=== PATIENT | male | born 1955 | race Two or more races ===

== ENCOUNTER 2018-11-18 13:57 | Emergency (ER) | payer MEDICAID ==
[~2018-11-18] VITALS: Ht 180.3 cm; Wt 73.0 kg
[2018-11-18 14:49] LABS: CLARITY URINE CLEAR (CLEAR); COLOR URINE YELLOW (YELLOW); KETONES URINE NEGATIVE (NEGATIVE); LEUKOCYTE ESTERASE URINE 2+ (NEGATIVE); NITRITE URINE NEGATIVE (NEGATIVE); OCCULT BLOOD URINE NEGATIVE (NEGATIVE); PROTEIN URINE NEGATIVE (NEGATIVE); SPECIFIC GRAVITY URINE 1.019 (1.005-1.030); UROBILINOGEN URINE 0.2 E.U./dL (0.2-1.0)
[2018-11-18 14:59] LABS: BASOPHILS % 0.5 % (0.0-2.0); EOSINOPHILS % 2.3 % (0.0-5.0); HEMATOCRIT. 37.7 % (42.0-52.0); HEMOGLOBIN. 13.6 g/dL (14.0-18.0); LYMPHOCYTES % 28.3 % (20.0-50.0); MEAN CORPUSCULAR HEMOGLOBIN 30.1 pg (28.0-32.0); MEAN CORPUSCULAR VOLUME 83.7 fL (80.0-94.0); MEAN PLATELET VOLUME 8.4 fl (7.4-10.4); MONOCYTES % 8.4 % (2.0-8.0); NEUTROPHILS % 60.5 % (40.0-76.0); PLATELET 185 x1000/uL (130-400); RED CELL DISTRIBUTION WIDTH 12.9 % (11.6-14.6)
[2018-11-18 15:04] LABS: CHLORIDE 106 mEq/L (98-107)
[2018-11-18] MEDS ORDERED: IOHEXOL-350 100 ML BOTTLE ONE (16:18)
[2018-11-18] MEDS ORDERED: LEVOFLOXACIN 750MG PREMIX 150 ML IV ONE (17:00)
[2018-11-18] MEDS ORDERED: METRONIDAZOLE 50MG/ML 1ML ORAL SYR(NEO) PO ONE (17:00)
[2018-11-18] MEDS ORDERED: METRONIDAZOLE 500MG TABLET PO NR (17:30)
[2018-11-18] MEDS ORDERED: ONDANSETRON HCL 4MG/2ML INJ IV ONE (19:00)
[2018-11-18 19:57] VITALS: BP 113/77
== END 2018-11-18 21:27 | disposition home or self-care (01) ==
LOC: ER 13:57
DX: K57.32 Diverticulitis of large intestine without perforation or abscess without bleeding (principal); E03.9 Hypothyroidism, unspecified; M19.90 Unspecified osteoarthritis, unspecified site
CPT/HCPCS: 36415; 74174; 80053; 81003; 85025; 96365; 99284; J1956; J2405; Q9967; Z7610

== ENCOUNTER 2018-11-22 19:49 | Inpatient (IN) | payer MEDICAID ==
[~2018-11-22] VITALS: Ht 177.8 cm; Wt 72.6 kg
[2018-11-22] MEDS ORDERED: ONDANSETRON HCL 4MG/2ML INJ IV STA (20:42)
[2018-11-22] MEDS ORDERED: SODIUM CHLORIDE 0.9% 1,000 ML IV ONE (20:42)
[2018-11-22] MEDS ORDERED: MORPHINE SULFATE 4 MG/ML CPJ (NOT FOR IM USE) IV STA (20:42)
[2018-11-22] MEDS ORDERED: LEVOFLOXACIN 750MG PREMIX 150 ML IV ONE (20:45)
[2018-11-22] MEDS ORDERED: METRONIDAZOLE 500 MG PREMIX 100 ML IV ONE (20:45)
[2018-11-22 21:16] LABS: CLARITY URINE CLEAR (CLEAR); COLOR URINE DARK YELLOW (YELLOW); KETONES URINE NEGATIVE (NEGATIVE); LEUKOCYTE ESTERASE URINE 1+ (NEGATIVE); NITRITE URINE NEGATIVE (NEGATIVE); OCCULT BLOOD URINE NEGATIVE (NEGATIVE); PROTEIN URINE TRACE (NEGATIVE); SPECIFIC GRAVITY URINE 1.035 (1.005-1.030); UROBILINOGEN URINE 0.2 E.U./dL (0.2-1.0)
[2018-11-22 21:17] LABS: BASOPHILS % 1.3 % (0.0-2.0); EOSINOPHILS % 5.7 % (0.0-5.0); HEMOGLOBIN. 14.7 g/dL (14.0-18.0); LYMPHOCYTES % 44.6 % (20.0-50.0); MEAN CORPUSCULAR HEMOGLOBIN 30.2 pg (28.0-32.0); MEAN CORPUSCULAR VOLUME 82.2 fL (80.0-94.0); MEAN PLATELET VOLUME 8.2 fl (7.4-10.4); MONOCYTES % 10.9 % (2.0-8.0); NEUTROPHILS % 37.5 % (40.0-76.0); PLATELET 208 x1000/uL (130-400); RED BLOOD CELL COUNT 4.87 mill/uL (4.7-6.1); RED CELL DISTRIBUTION WIDTH 12.8 % (11.6-14.6)
[2018-11-22 21:28] LABS: INR 1.1; PARTIAL THROMBOPLASTIN TIME 34.1 sec (23.4-31.0); PROTHROMBIN TIME 11.1 sec (9.6-11.0)
[2018-11-22 21:29] LABS: CHLORIDE 91 mEq/L (98-107)
[2018-11-23 03:00] VITALS: BP 115/75
[2018-11-23] MEDS ORDERED: HYDROMORPHONE HCL/PF 2MG/ML CPJ IV PRN (06:30)
[2018-11-23] MEDS ORDERED: LEVOFLOXACIN 500MG PREMIX 100 ML IV SCH ×2 (06:30→21:00)
[2018-11-23] MEDS ORDERED: ACETAMINOPHEN 325MG TABLET PO PRN (06:30)
[2018-11-23] MEDS ORDERED: ONDANSETRON HCL 4MG/2ML INJ IV PRN (06:30)
[2018-11-23] MEDS ORDERED: DOCUSATE SODIUM 100MG CAPSULE PO PRN (06:30)
[2018-11-23] MEDS ORDERED: HYDROCODONE/ACETAMINOPHEN 10/325MG TABLET PO PRN (06:30)
[2018-11-23] MEDS ORDERED: IPRATROPIUM/ALBUTEROL 0.5-3(2.5)MG/3ML NEB INH PRN (06:30)
[2018-11-23] MEDS ORDERED: DIPHENHYDRAMINE 50MG/ML VIAL IV PRN (06:30)
[2018-11-23] MEDS ORDERED: NA PHOS,M-B/NA PHOS,DI-BA ENEMA 118ML PR PRN (06:30)
[2018-11-23] MEDS ORDERED: MAGNESIUM/ALUMINUM HYDROXIDE/SIMETHICONE 30ML UDC PO PRN (06:30)
[2018-11-23] MEDS ORDERED: GUAIFENESIN 200MG/10ML SUGAR FREE UDC PO PRN (06:30)
[2018-11-23] MEDS ORDERED: LORAZEPAM 2MG/ML CPJ IV PRN (06:30)
[2018-11-23] MEDS ORDERED: HYDRALAZINE 20MG/ML VIAL IV PRN (06:30)
[2018-11-23] MEDS ORDERED: CLONIDINE 0.1MG TABLET PO PRN (06:30)
[2018-11-23] MEDS: SODIUM CHLORIDE 0.9% 1,000 ML IV SCH (07:51)
[2018-11-23 08:00] VITALS: BP 112/75
[2018-11-23] MEDS ORDERED: HYDRALAZINE 10 MG in SODIUM CHLORIDE 0.9% 49.5 ML IV PRN (08:00)
[2018-11-23] MEDS: ENOXAPARIN 40MG/0.4ML SYR SUBCUT SCH (08:11)
[2018-11-23] MEDS: ASPIRIN 81MG EC TABLET PO SCH (08:13)
[2018-11-23 11:36] VITALS: BP 112/72
[2018-11-23] MEDS: METRONIDAZOLE 500 MG PREMIX 100 ML IV SCH ×2 (13:11→18:57)
[2018-11-23] MEDS ORDERED: LEVO100T9 MT (14:06)
[2018-11-23] MEDS: SODIUM CHLORIDE 0.9% INJ 3ML FLUSH IVF SCH ×2 (14:13→21:13)
[2018-11-23 15:39] VITALS: BP 104/64
[2018-11-23 20:00] VITALS: BP 99/62
[2018-11-24] VITALS: BP 103/57
[2018-11-24 04:00] VITALS: BP 101/55
[2018-11-24] MEDS: METRONIDAZOLE 500 MG PREMIX 100 ML IV SCH ×2 (05:08→09:16)
[2018-11-24] MEDS: SODIUM CHLORIDE 0.9% INJ 3ML FLUSH IVF SCH (05:10)
[2018-11-24] MEDS: SODIUM CHLORIDE 0.9% 1,000 ML IV SCH ×2 (05:16→09:53)
[2018-11-24 08:00] VITALS: BP 106/66
[2018-11-24] MEDS: ASPIRIN 81MG EC TABLET PO SCH (09:14)
[2018-11-24] MEDS: ENOXAPARIN 40MG/0.4ML SYR SUBCUT SCH (09:14)
[2018-11-24 09:16] LABS: EOSINOPHILS % 3.6 % (0.0-5.0); HEMATOCRIT. 38.2 % (42.0-52.0); HEMOGLOBIN. 13.7 g/dL (14.0-18.0); LYMPHOCYTES % 39.3 % (20.0-50.0); MEAN CORPUSCULAR HEMOGLOBIN 29.7 pg (28.0-32.0); MEAN CORPUSCULAR VOLUME 82.7 fL (80.0-94.0); MEAN PLATELET VOLUME 8.1 fl (7.4-10.4); MONOCYTES % 7.6 % (2.0-8.0); NEUTROPHILS % 48.5 % (40.0-76.0); PLATELET 207 x1000/uL (130-400); RED BLOOD CELL COUNT 4.62 mill/uL (4.7-6.1); RED CELL DISTRIBUTION WIDTH 12.8 % (11.6-14.6)
[2018-11-24 09:24] LABS: CHLORIDE 97 mEq/L (98-107)
[2018-11-24] MEDS ORDERED: LEVOTHYROXINE SODIUM 100MCG TABLET PO SCH (10:30)
[2018-11-24 11:56] VITALS: BP 109/71
[2018-11-24 12:05] VITALS: BP 110/71
== END 2018-11-24 13:46 | disposition home or self-care (01) | DRG 244 ==
LOC: ER 19:49 → 6EST 11-23 01:54 → EDBEDREQTM 11-23 01:57 → EDBEDREQ 11-23 01:57 → ENRESERV 11-23 02:09
PROVIDERS: ADMIT Internal Medicine; ATTEND Internal Medicine
DX: K57.32 Diverticulitis of large intestine without perforation or abscess without bleeding (principal); D72.819 Decreased white blood cell count, unspecified; E03.9 Hypothyroidism, unspecified; M19.90 Unspecified osteoarthritis, unspecified site
CPT/HCPCS: 36415; 71045; 74176; 93005; 96365; 99291; J1650; J1956; J2270; J2405; J3490; J7030